=== PATIENT | female | born 1955 | race African-American/Black ===

== ENCOUNTER 2018-01-18 05:53 | Inpatient (IN) ==
[2018-01-12 10:10] LABS: Basophils # 0.1 10*3/uL (0.0-0.2); Basophils % 0.8 % (0.0-0.8); Eosinophils # 0.4 10*3/uL (0.0-0.87); Eosinophils % 4.1 % (0.00-10.9); Hematocrit 35.3 VOL% (35.7-47.0); Hemoglobin 12.1 GM/DL (12.0-16.0); Immature Granulocytes % 0.4 %; Immature Granulocytes Absolute 0.03 #; Lymphocytes # 3.3 10*3/uL (1.4-4.0); Lymphocytes % 38.8 % (21.3-54.2); Mean Corpuscular HGB Conc 34.3 GM/DL (32-36); Mean Corpuscular Hemoglobin 30 PG (27-34); Mean Corpuscular Volume 86.3 FL (87-102); Mean Platelet Volume 9.2 FL (9.6-12.0); Monocytes # 0.7 10*3/uL (0.11-0.8); Monocytes % 7.9 % (1.7-12.7); Neutrophils # 4.1 10*3/uL (1.4-7.4); Platelet Count 266 T/CUMM (130-400); Red Blood Count 4.09 MC/CUMM (3.8-5.5); Red Cell Distribution Width 13.2 % (9.3-17.3); White Blood Count 8.5 T/CUMM (4-12)
[2018-01-12 10:16] LABS: INR 0.9; PT Patient Result 9.9 SECS
[2018-01-12 10:20] LABS: Apearance,Urine CLEAR (Clear); Bilirubin,Urine Negative (Negative); Blood, Urine Moderate mg/dL (Negative); Glucose,Urine (UA) Negative (Negative); Ketones,Urine Negative (Negative); Mucus,Urine Few /LPF (Occasional); Nitrite,Urine Negative (Negative); Protein,Urine 30 MG/DL; RBC,Urine 8 /HPF (0-4); Squamous Epithelial Cell,Urine Occasional /HPF (0-10); Urine Color Yellow (Yellow); Urine Specific Gravity 1.024 (1.001-1.035); WBC,Urine 1 /HPF (0-6)
[2018-01-12 10:28] LABS: Albumin 3.9 G/DL (3.4-5.0); Bilirubin,Total 0.6 MG/DL (0.2-1.0); Calcium 8.4 MG/DL (8.5-10.1); Osmolality,Calculated 277.5 MOS/KG (273-304); Total Protein 7.5 G/DL (6.4-8.3)
[2018-01-18] MEDS ORDERED: VANCOMYCIN INJ 1,000 MG in SODIUM CHLORIDE 0.9% 250 ML IV ONE (06:00)
[2018-01-18] MEDS ORDERED: ceFAZolin 1,000 MG in SYRINGE 1 EACH IV ONE (06:00)
[2018-01-18] MEDS ORDERED: VANCOMYCIN 1,000 MG VIAL ONE (06:03)
[2018-01-18] MEDS ORDERED: ceFAZolin 1,000 MG VIAL ONE (06:03)
[2018-01-18] MEDS ORDERED: TRANEXAMIC ACID 1,000 MG/10 ML VIAL ONE (06:39)
[2018-01-18] MEDS ORDERED: BACITRACIN OINT 0.9 GM PACK TOP ONE (06:39)
[2018-01-18] MEDS ORDERED: LACTATED RINGERS 1,000 ML IV SCH (07:00)
[2018-01-18] MEDS ORDERED: oxyCODONE IR 5 MG TABLET PO PRN (08:48)
[2018-01-18] MEDS ORDERED: MORPHINE 4 MG/1 ML VIAL IV PRN (08:48)
[2018-01-18] MEDS ORDERED: ONDANSETRON 4 MG/2 ML VIAL IV PRN ×2 (08:48→09:21)
[2018-01-18] MEDS ORDERED: diphenhydrAMINE CAP 25 MG CAPSULE PO PRN (08:48)
[2018-01-18] MEDS ORDERED: PROPOFOL 200 MG/20 ML VIAL IV ONE (09:12)
[2018-01-18] MEDS ORDERED: MIDAZOLAM 2 MG/2 ML VIAL ONE (09:13)
[2018-01-18] MEDS ORDERED: KETAMINE 500 MG/10 ML VIAL ONE (09:13)
[2018-01-18] MEDS ORDERED: fentaNYL 100 MCG/2 ML VIAL ONE (09:13)
[2018-01-18] MEDS ORDERED: ONDANSETRON 4 MG/2 ML VIAL ONE ×2 (09:13→09:23)
[2018-01-18] MEDS ORDERED: SEVOFLURANE 1 UNIT/15 MINUTE INH ONE (09:13)
[2018-01-18] MEDS ORDERED: BUPIVACAINE SPINAL 0.75% 2 ML AMP SPINAL ONE (09:13)
[2018-01-18] MEDS ORDERED: SUCCINYLCHOLINE 200 MG/10 ML VIAL ONE (09:14)
[2018-01-18] MEDS ORDERED: LABETALOL 100 MG/20 ML VIAL IV ONE (09:14)
[2018-01-18] MEDS ORDERED: SODIUM CHLORIDE 0.9% 250 ML IV ONE (09:14)
[2018-01-18] MEDS ORDERED: SODIUM CHLORIDE 0.9% 100 ML IV ONE (09:14)
[2018-01-18] MEDS ORDERED: ACETAMINOPHEN 1,000 MG/100 ML VIAL IV ONE (09:14)
[2018-01-18] MEDS ORDERED: LACTATED RINGERS 1,000 ML IV ONE (09:14)
[2018-01-18 09:20] LABS: Apearance,Urine CLEAR (Clear); Bilirubin,Urine Negative (Negative); Blood, Urine Moderate mg/dL (Negative); Glucose,Urine (UA) Negative (Negative); Ketones,Urine Negative (Negative); Mucus,Urine Occasional /LPF (Occasional); Nitrite,Urine Negative (Negative); Protein,Urine Negative; RBC,Urine 3 /HPF (0-4); Urine Color Straw (Yellow); Urine Specific Gravity 1.009 (1.001-1.035); Urine Urobilinogen < 2.0 EU/DL (0.2-1.0); WBC,Urine <1 /HPF (0-6)
[2018-01-18] MEDS ORDERED: HYDROmorphone 2 MG/1 ML VIAL IV PRN (09:21)
[2018-01-18] MEDS ORDERED: MORPHINE 10 MG/1 ML VIAL ONE (09:22)
[2018-01-18] MEDS: MORPHINE 4 MG/1 ML VIAL IV PRN ×5 (09:31→19:50)
[2018-01-18] MEDS: KETOROLAC 30 MG/1 ML VIAL IV SCH ×3 (10:20→21:56)
[2018-01-18] MEDS: LACTATED RINGERS 1,000 ML IV SCH ×3 (10:20→20:05)
[2018-01-18] MEDS: oxyCODONE IR 5 MG TABLET PO PRN ×2 (10:40→17:20)
[2018-01-18] MEDS: DOCUSATE SODIUM 100 MG CAPSULE PO SCH ×2 (10:46→21:56)
[2018-01-18] MEDS: ATORVASTATIN 40 MG TABLET PO SCH (10:47)
[2018-01-18] MEDS: amLODIPine 5 MG TABLET PO SCH (10:47)
[2018-01-18] MEDS: PANTOPRAZOLE 40 MG TABLET PO SCH (10:47)
[2018-01-18] MEDS: ceFAZolin 2,000 MG in PREMIX 1 EACH IV SCH ×2 (13:35→21:57)
[2018-01-18] MEDS: ACETAMINOPHEN 500 MG TABLET PO SCH ×2 (13:35→19:50)
[2018-01-19] MEDS: KETOROLAC 30 MG/1 ML VIAL IV SCH (02:37)
[2018-01-19] MEDS: ACETAMINOPHEN 500 MG TABLET PO SCH ×2 (03:04→08:54)
[2018-01-19] MEDS: LACTATED RINGERS 1,000 ML IV SCH (05:21)
[2018-01-19] MEDS: FONDAPARINUX 2.5 MG/0.5 ML SYRINGE SUBCUT SCH (05:21)
[2018-01-19] MEDS: MORPHINE 4 MG/1 ML VIAL IV PRN (05:54)
[2018-01-19 06:33] LABS: Basophils % 0.3 % (0.0-0.8); Eosinophils # 0.4 10*3/uL (0.0-0.87); Hematocrit 29.1 VOL% (35.7-47.0); Hemoglobin 9.9 GM/DL (12.0-16.0); Immature Granulocytes % 0.3 %; Immature Granulocytes Absolute 0.03 #; Lymphocytes # 3.2 10*3/uL (1.4-4.0); Lymphocytes % 35.7 % (21.3-54.2); Mean Corpuscular Hemoglobin 30 PG (27-34); Mean Corpuscular Volume 87.9 FL (87-102); Mean Platelet Volume 9.3 FL (9.6-12.0); Monocytes # 0.9 10*3/uL (0.11-0.8); Monocytes % 10.2 % (1.7-12.7); Neutrophils # 4.5 10*3/uL (1.4-7.4); Neutrophils % 49.5 % (38.7-73.9); Platelet Count 202 T/CUMM (130-400); Red Blood Count 3.31 MC/CUMM (3.8-5.5); Red Cell Distribution Width 13.4 % (9.3-17.3)
[2018-01-19 07:05] LABS: Calcium 7.8 MG/DL (8.5-10.1); Osmolality,Calculated 282.1 MOS/KG (273-304); Potassium 3.4 MMOL/L (3.5-5.1)
[2018-01-19] MEDS: DOCUSATE SODIUM 100 MG CAPSULE PO SCH ×2 (08:53→20:45)
[2018-01-19] MEDS: amLODIPine 5 MG TABLET PO SCH (08:54)
[2018-01-19] MEDS: ATORVASTATIN 40 MG TABLET PO SCH (08:55)
[2018-01-19] MEDS: PANTOPRAZOLE 40 MG TABLET PO SCH (08:55)
[2018-01-19] MEDS: CELECOXIB 200 MG CAPSULE PO SCH (14:59)
[2018-01-19] MEDS ORDERED: POTASSIUM CHLORIDE 20 MEQ TABLET PO ONE (16:55)
[2018-01-19] MEDS: MAGNESIUM HYDROXIDE SUSP 30 ML UDCUP PO PRN (20:52)
[2018-01-20] MEDS: FONDAPARINUX 2.5 MG/0.5 ML SYRINGE SUBCUT SCH (05:17)
[2018-01-20] MEDS: MAGNESIUM HYDROXIDE SUSP 30 ML UDCUP PO PRN (05:17)
[2018-01-20 06:55] LABS: Basophils % 0.3 % (0.0-0.8); Eosinophils # 0.3 10*3/uL (0.0-0.87); Eosinophils % 2.9 % (0.00-10.9); Hematocrit 28.2 VOL% (35.7-47.0); Hemoglobin 9.9 GM/DL (12.0-16.0); Immature Granulocytes % 0.4 %; Immature Granulocytes Absolute 0.04 #; Lymphocytes # 2.5 10*3/uL (1.4-4.0); Lymphocytes % 25.1 % (21.3-54.2); Mean Corpuscular HGB Conc 35.1 GM/DL (32-36); Mean Corpuscular Hemoglobin 30 PG (27-34); Mean Corpuscular Volume 86.5 FL (87-102); Mean Platelet Volume 9.5 FL (9.6-12.0); Monocytes # 1.1 10*3/uL (0.11-0.8); Monocytes % 11.4 % (1.7-12.7); Neutrophils # 5.9 10*3/uL (1.4-7.4); Neutrophils % 59.9 % (38.7-73.9); Platelet Count 209 T/CUMM (130-400); Red Blood Count 3.26 MC/CUMM (3.8-5.5); Red Cell Distribution Width 13.4 % (9.3-17.3); White Blood Count 9.9 T/CUMM (4-12)
[2018-01-20] MEDS: amLODIPine 5 MG TABLET PO SCH (08:49)
[2018-01-20] MEDS: CELECOXIB 200 MG CAPSULE PO SCH (08:50)
[2018-01-20] MEDS: PANTOPRAZOLE 40 MG TABLET PO SCH (08:50)
[2018-01-20] MEDS: ATORVASTATIN 40 MG TABLET PO SCH (08:50)
[2018-01-20] MEDS: DOCUSATE SODIUM 100 MG CAPSULE PO SCH (08:50)
[2018-01-20 12:37] VITALS: BP 121/68
== END 2018-01-20 12:45 | disposition home or self-care (01) | DRG 301 ==
LOC: N.OR 05:53 → N.SDSINP 05:54 → N.3E 08:00
PROVIDERS: ADMIT Orthopaedic Surgery; ATTEND Orthopaedic Surgery

== ENCOUNTER 2022-08-24 23:14 | Inpatient (IN) ==
[2022-08-24] MEDS ORDERED: SODIUM CHLORIDE 0.9% 1,000 ML IV STA (23:50)
[2022-08-24] MEDS ORDERED: ONDANSETRON 4 MG/2 ML VIAL IV STA (23:51)
[2022-08-24] MEDS ORDERED: ALUM/MAG/SIMETH/LIDO VISC 1:1 30 ML BOTTLE PO STA (23:52)
[2022-08-25 00:19] LABS: Alanine Aminotransferase 226 U/L (13-56); Albumin 3.9 G/DL (3.4-5.0); Alkaline Phosphatase 183 U/L (45-117); Aspartate Amino Transferase 886 U/L (0-37); Blood Urea Nitrogen 16 MG/DL (7-18); Calcium 9.3 MG/DL (8.5-10.1); Carbon Dioxide 28 MMOL/L (21-32); Chloride 103 MMOL/L (98-107); Glucose 163 MG/DL (74-106); Osmolality,Calculated 277.8 MOS/KG (273-304); Potassium 3.2 MMOL/L (3.5-5.1); Sodium 137 MMOL/L (136-145); Total Protein 7.3 G/DL (6.4-8.2)
[2022-08-25 00:36] LABS: Basophils % 0.2 % (0.0-0.8); Eosinophils # 0.1 10*3/uL (0.0-0.87); Eosinophils % 0.9 % (0.00-10.9); Hematocrit 37.3 VOL% (35.7-47.0); Hemoglobin 13.1 GM/DL (12.0-16.0); Immature Granulocytes % 0.3 %; Immature Granulocytes Absolute 0.04 #; Lymphocytes # 1.9 10*3/uL (1.4-4.0); Lymphocytes % 15.1 % (21.3-54.2); Mean Corpuscular HGB Conc 35.1 GM/DL (32-36); Mean Corpuscular Volume 87.4 FL (87-102); Mean Platelet Volume 9.9 FL (9.6-12.0); Monocytes # 0.5 10*3/uL (0.11-0.8); Monocytes % 3.9 % (1.7-12.7); Neutrophils % 79.6 % (38.7-73.9); Platelet Count 255 T/CUMM (130-400); Red Blood Count 4.27 MC/CUMM (3.8-5.5); Red Cell Distribution Width 13.1 % (9.3-17.3); White Blood Count 12.4 T/CUMM (4-12)
[2022-08-25] MEDS ORDERED: MORPHINE 10 MG/1 ML VIAL IV STA (00:38)
[2022-08-25] MEDS ORDERED: MORPHINE 2 MG/1 ML SYRINGE IV STA (00:46)
[2022-08-25 00:58] LABS: Bacteria,Urine Occasional /HPF (Few); Mucus,Urine Few /LPF (Occasional); RBC,Urine 11 /HPF (0-4); Squamous Epithelial Cell,Urine Occasional /HPF (0-10)
[2022-08-25 00:59] LABS: Glucose,Urine (UA) Negative (Negative); Ketones,Urine Trace mg/dL (Negative); Nitrite,Urine Negative (Negative); Protein,Urine 100 mg/dL (Negative); Urine Appearance Clear (Clear); Urine Color Yellow (Yellow); Urine Specific Gravity >= 1.030 (1.001-1.035); Urine pH 6.5 (4.5-8.0)
[2022-08-25 01:00] LABS: Bilirubin,Urine Moderate mg/dL (Negative); Blood, Urine Trace mg/dL (Negative)
[2022-08-25] MEDS ORDERED: LACTATED RINGERS 1,000 ML IV ONE (01:10)
[2022-08-25] MEDS ORDERED: HYDROmorphone 1 MG/1 ML SYRINGE IV STA (02:39)
[2022-08-25] MEDS ORDERED: NICOTINE 21 MG/24 HR PATCH TRANSDERM PRN (03:40)
[2022-08-25] MEDS ORDERED: hydrALAZINE 20 MG/1 ML VIAL IV PRN (03:40)
[2022-08-25] MEDS ORDERED: HYDROmorphone 1 MG/1 ML SYRINGE IV PRN (03:40)
[2022-08-25] MEDS ORDERED: ONDANSETRON 4 MG/2 ML VIAL IV PRN (03:40)
[2022-08-25] MEDS ORDERED: LACTATED RINGERS 1,000 ML IV SCH (05:00)
[2022-08-25 05:42] LABS: Basophils % 0.1 % (0.0-0.8); Eosinophils # 0.1 10*3/uL (0.0-0.87); Eosinophils % 1.2 % (0.00-10.9); Hematocrit 35.6 VOL% (35.7-47.0); Hemoglobin 12.4 GM/DL (12.0-16.0); Immature Granulocytes % 0.5 %; Immature Granulocytes Absolute 0.04 #; Lymphocytes # 0.8 10*3/uL (1.4-4.0); Lymphocytes % 9.2 % (21.3-54.2); Mean Corpuscular HGB Conc 34.8 GM/DL (32-36); Mean Corpuscular Volume 88.1 FL (87-102); Mean Platelet Volume 9.1 FL (9.6-12.0); Monocytes # 0.2 10*3/uL (0.11-0.8); Monocytes % 2.8 % (1.7-12.7); Neutrophils % 86.2 % (38.7-73.9); Platelet Count 217 T/CUMM (130-400); Red Blood Count 4.04 MC/CUMM (3.8-5.5); Red Cell Distribution Width 13.1 % (9.3-17.3); White Blood Count 8.3 T/CUMM (4-12)
[2022-08-25 06:00] LABS: Risk Ratio 2.73; VLDL Cholesterol 21.2 MG/DL
[2022-08-25 06:01] LABS: Albumin 3.5 G/DL (3.4-5.0); Bilirubin,Total 1.9 MG/DL (0.20-1.00); Calcium 8.7 MG/DL (8.5-10.1); Osmolality,Calculated 274.8 MOS/KG (273-304); Potassium 3.5 MMOL/L (3.5-5.1); Total Protein 6.8 G/DL (6.4-8.2)
[2022-08-25 10:20] LABS: Hepatitis B Core IgM Quant 0.06 Index; Hepatitis B Surface Ag Quant < 0.10 Index; Hepatitis B Surface Ag Result Non-Reactive (NonReactive); Hepatitis C Virus Ab Quant 0.03 Index; Hepatitis C Virus Ab Result Non-Reactive (NonReactive)
[2022-08-25] MEDS: ASPIRIN EC 81 MG TABLET PO SCH (10:25)
[2022-08-25] MEDS: amLODIPine 5 MG TABLET PO SCH (10:26)
[2022-08-25] MEDS: CHOLECALCIFEROL 1,000 UNIT TABLET PO SCH (10:26)
[2022-08-25] MEDS: ATORVASTATIN 40 MG TABLET PO SCH (10:26)
[2022-08-25] MEDS: PANTOPRAZOLE 40 MG VIAL IV SCH (10:26)
[2022-08-25] MEDS: LACTATED RINGERS 1,000 ML IV SCH ×2 (12:42→19:53)
[2022-08-25] MEDS ORDERED: MAGNESIUM SULF RIDER 2 GM/50 ML PREMIX IV PRN (19:57)
[2022-08-25] MEDS ORDERED: MAGNESIUM SULF RIDER 4 GM/100 ML PREMIX IV PRN (19:57)
[2022-08-25] MEDS: ACETAMINOPHEN 325 MG TABLET PO PRN (20:51)
[2022-08-26] MEDS: LACTATED RINGERS 1,000 ML IV SCH ×5 (02:33→19:10)
[2022-08-26 05:53] LABS: Basophils % 0.1 % (0.0-0.8); Eosinophils # 0.3 10*3/uL (0.0-0.87); Eosinophils % 3.5 % (0.00-10.9); Hemoglobin 11.6 GM/DL (12.0-16.0); Immature Granulocytes % 0.3 %; Immature Granulocytes Absolute 0.03 #; Lymphocytes # 1.7 10*3/uL (1.4-4.0); Lymphocytes % 19.3 % (21.3-54.2); Mean Corpuscular HGB Conc 35.2 GM/DL (32-36); Mean Corpuscular Volume 89.7 FL (87-102); Mean Platelet Volume 9.5 FL (9.6-12.0); Monocytes # 0.4 10*3/uL (0.11-0.8); Monocytes % 4.7 % (1.7-12.7); Neutrophils % 72.1 % (38.7-73.9); Platelet Count 208 T/CUMM (130-400); Red Blood Count 3.68 MC/CUMM (3.8-5.5); Red Cell Distribution Width 13.2 % (9.3-17.3)
[2022-08-26 06:21] LABS: Bilirubin,Total 1.2 MG/DL (0.20-1.00); Calcium 8.3 MG/DL (8.5-10.1); Osmolality,Calculated 277.4 MOS/KG (273-304); Potassium 3.3 MMOL/L (3.5-5.1); Total Protein 6.3 G/DL (6.4-8.2)
[2022-08-26] MEDS: ASPIRIN EC 81 MG TABLET PO SCH (09:31)
[2022-08-26] MEDS: amLODIPine 5 MG TABLET PO SCH (09:31)
[2022-08-26] MEDS: ATORVASTATIN 40 MG TABLET PO SCH (09:31)
[2022-08-26] MEDS: CHOLECALCIFEROL 1,000 UNIT TABLET PO SCH (09:31)
[2022-08-26] MEDS: PANTOPRAZOLE 40 MG VIAL IV SCH (09:31)
[2022-08-26] MEDS: POTASSIUM CHLORIDE RIDER 10 MEQ/100 ML PREMIX IV PRN ×3 (13:56→17:28)
[2022-08-26] MEDS: PIPERACILLIN/TAZOBACTAM 3,375 MG in SODIUM CHLORIDE 0.9% 100 ML IV SCH (19:05)
[2022-08-26] MEDS: ACETAMINOPHEN 325 MG TABLET PO PRN (21:13)
[2022-08-27] MEDS: POTASSIUM CHLORIDE RIDER 10 MEQ/100 ML PREMIX IV PRN (00:18)
[2022-08-27] MEDS: PIPERACILLIN/TAZOBACTAM 3,375 MG in SODIUM CHLORIDE 0.9% 100 ML IV SCH ×2 (02:16→09:10)
[2022-08-27 05:16] LABS: Basophils % 0.2 % (0.0-0.8); Eosinophils # 0.4 10*3/uL (0.0-0.87); Eosinophils % 3.4 % (0.00-10.9); Hematocrit 32.9 VOL% (35.7-47.0); Hemoglobin 11.3 GM/DL (12.0-16.0); Immature Granulocytes % 0.4 %; Immature Granulocytes Absolute 0.04 #; Lymphocytes # 2.2 10*3/uL (1.4-4.0); Lymphocytes % 20.6 % (21.3-54.2); Mean Corpuscular HGB Conc 34.3 GM/DL (32-36); Mean Corpuscular Volume 90.1 FL (87-102); Mean Platelet Volume 9.7 FL (9.6-12.0); Monocytes # 0.7 10*3/uL (0.11-0.8); Monocytes % 6.6 % (1.7-12.7); Neutrophils % 68.8 % (38.7-73.9); Platelet Count 211 T/CUMM (130-400); Red Blood Count 3.65 MC/CUMM (3.8-5.5); Red Cell Distribution Width 12.8 % (9.3-17.3); White Blood Count 10.7 T/CUMM (4-12)
[2022-08-27 05:53] LABS: Albumin 3.1 G/DL (3.4-5.0); Bilirubin,Total 0.8 MG/DL (0.20-1.00); Osmolality,Calculated 277.4 MOS/KG (273-304); Potassium 3.5 MMOL/L (3.5-5.1); Total Protein 6.9 G/DL (6.4-8.2)
[2022-08-27] MEDS ORDERED: INDOCYANINE GREEN 25 MG VIAL IV ONE (06:42)
[2022-08-27] MEDS: LACTATED RINGERS 1,000 ML IV SCH ×5 (07:09→21:12)
[2022-08-27] MEDS: ATORVASTATIN 40 MG TABLET PO SCH (09:42)
[2022-08-27] MEDS: ASPIRIN EC 81 MG TABLET PO SCH (09:42)
[2022-08-27] MEDS: amLODIPine 5 MG TABLET PO SCH (09:42)
[2022-08-27] MEDS: CHOLECALCIFEROL 1,000 UNIT TABLET PO SCH (09:42)
[2022-08-27] MEDS: PANTOPRAZOLE 40 MG VIAL IV SCH (11:16)
[2022-08-27] MEDS ORDERED: BUPIVACAINE MPF 0.25% 10 ML VIAL ONE (13:33)
[2022-08-27] MEDS ORDERED: TISSUE ADHESIVE 1 EACH APPLICATOR TOP ONE (13:34)
[2022-08-27] MEDS ORDERED: LIDOCAINE 1%/EPI INJ 20 ML VIAL ONE (13:34)
[2022-08-27] MEDS ORDERED: fentaNYL 100 MCG/2 ML VIAL ONE ×3 (13:42→15:18)
[2022-08-27] MEDS ORDERED: PHENYLEPHRINE 1 MG/10 ML SYRINGE IV ONE (13:42)
[2022-08-27] MEDS ORDERED: LIDOCAINE 2% 5 ML VIAL ONE (13:42)
[2022-08-27] MEDS ORDERED: SEVOFLURANE 1 UNIT/15 MINUTE INH ONE (13:42)
[2022-08-27] MEDS ORDERED: ROCURONIUM 50 MG/5 ML VIAL IV ONE (13:42)
[2022-08-27] MEDS ORDERED: ONDANSETRON 4 MG/2 ML VIAL ONE (13:42)
[2022-08-27] MEDS ORDERED: propofoL 200 MG/20 ML VIAL IV ONE (13:42)
[2022-08-27] MEDS ORDERED: MIDAZOLAM 2 MG/2 ML VIAL ONE (13:43)
[2022-08-27] MEDS ORDERED: ACETAMINOPHEN INJ 1,000 MG/100 ML VIAL IV ONE (14:30)
[2022-08-27] MEDS ORDERED: SUGAMMADEX 200 MG/2 ML VIAL IV ONE (15:14)
[2022-08-27] MEDS: LACTATED RINGERS 500 ML IV SCH ×2 (15:51→15:56)
[2022-08-27] MEDS ORDERED: HYDROmorphone 1 MG/1 ML SYRINGE IV PRN (16:04)
[2022-08-27] MEDS ORDERED: ONDANSETRON 4 MG/2 ML VIAL IV PRN (16:04)
[2022-08-28 05:43] LABS: Albumin 2.9 G/DL (3.4-5.0); Bilirubin,Total 0.5 MG/DL (0.20-1.00); Calcium 8.7 MG/DL (8.5-10.1); Osmolality,Calculated 270.8 MOS/KG (273-304); Potassium 3.4 MMOL/L (3.5-5.1); Total Protein 7.2 G/DL (6.4-8.2)
[2022-08-28] MEDS: LACTATED RINGERS 1,000 ML IV SCH ×3 (05:43→15:46)
[2022-08-28] MEDS ORDERED: POTASSIUM CHLORIDE 20 MEQ TABLET PO ONE (07:45)
[2022-08-28] MEDS: CHOLECALCIFEROL 1,000 UNIT TABLET PO SCH (09:44)
[2022-08-28] MEDS: ASPIRIN EC 81 MG TABLET PO SCH (09:44)
[2022-08-28] MEDS: amLODIPine 5 MG TABLET PO SCH (09:47)
[2022-08-28] MEDS: ATORVASTATIN 40 MG TABLET PO SCH (09:48)
[2022-08-28 12:22] VITALS: BP 156/73
[2022-08-28] MEDS ORDERED: SODIUM POLYSTYRENE SULFATE 15 GM/60 ML BOTTLE PO ONE (15:00)
[2022-08-29] MEDS ORDERED: PANTOPRAZOLE 40 MG TABLET PO SCH (06:30)
== END 2022-08-28 16:10 | disposition home or self-care (01) | DRG 417 ==
LOC: N.ED 23:14 → N.EDINP 08-25 03:40 → SUATTDRO 08-25 03:40 → N.2E 08-25 15:41
PROVIDERS: ADMIT Internal Medicine; ATTEND Family Medicine